=== PATIENT | male | born 1960 | race Caucasian/White ===

== ENCOUNTER 2016-07-05 19:09 | Emergency (ER) | payer OTHER ==
--- NOTE | ~2016-07-05 | ER ---
PATIENT'S NAME: GINO JACKSON [facility] AGE: 56 Y [address] ROOM: [place] [address] LOCATION: [facility] ADMIT DATE: 07/05/2016 ER/Outpatient Report DISCHARGE DATE: 07/05/2016 FAMILY PHYSICIAN: Gino Peters MD ATTENDING PHYSICIAN: Yesica Lamar HISTORY OF PRESENT ILLNESS: This is a 56-year-old male, who was sent in from [facility] after they noted that his heart was irregularly irregular and fast about 140 beats per minute there. The patient says he does not have any palpitations. He has no shortness of breath. He has no nausea or vomiting. No weakness. He is not sure when it started. He does not feel it though. He denies being diaphoretic. No jaw pain. No chest pain. No back pain. No other complaints at this time. He says he did not take his atrial fibrillation medication today. He also cannot tell me any of his medications, but thinks he takes something like Xarelto, calcium channel pb and something for depression. PAST MEDICAL HISTORY: Includes: 1. Hypertension. 2. Depression. 3. Atrial fibrillation on chronic anticoagulation. SOCIAL HISTORY: He does not smoke, drink or use any drugs. MEDICATIONS: Please see med list. ALLERGIES: NONE. REVIEW OF SYSTEMS: Reviewed by me and negative with the exception of those discussed in the HPI. PHYSICAL EXAMINATION: VITAL SIGNS: The patient is 5 feet 9 inches. He weighs 92.7 kilos. Blood pressure is 151/88, heart rate 148, respiratory rate 16, saturating 96% on room air. GCS is 15. GENERAL: The patient is in no acute distress. Pleasant, speaking in full sentences. HEENT: Pupils are equal and reactive to light. Moist mucous membranes. No JVD. HEART: His heart is irregularly irregular and in RVR ranging from 112 to 150s. No chest wall tenderness. PATIENT'S NAME: GINO JACKSON [facility] AGE: 56 Y [address] ROOM: [place] [address] LOCATION: [facility] ADMIT DATE: 07/05/2016 ER/Outpatient Report DISCHARGE DATE: 07/05/2016 FAMILY PHYSICIAN: Gino Peters MD ATTENDING PHYSICIAN: Yesica Lamar LUNGS: His lungs sounds are clear. He has no labored breathing, tachypnea or accessory muscle use. No wheezing, rales or rhonchi. ABDOMEN: Soft, nontender, nondistended. EXTREMITIES: He is moving all extremities. Nontender on palpation. No pedal edema. SKIN: Warm, dry, and intact. NEURO: He is alert and oriented x4. PSYCH: He denies any suicide or homicidal ideation. Just says he follows up at [facility] because he is feeling a little bit depressed. EMERGENCY ROOM COURSE: The patient was initially given 60 mg of p.o. diltiazem as he thinks that is what his dose at home is. This failed to correct his rate, so we did put an IV in him and gave him 10 mg IV push of diltiazem. We did check some blood work as well and the initial EKG was atrial fibrillation with RVR in the 140s. This is before we gave the diltiazem p.o. and IV push. The CBC showed a white count of 8.4, H and H was 15.8/45.3 and platelets 239. No bandemia. Renal panel; sodium was 137, potassium 3.8, chloride 102, CO2 25, anion gap 13.8, glucose 106, BUN is 14, creatinine is 1.2. CPK is 39, CK-MB is 0.5. Troponin was less than 0.04. The patient was reassessed after the IV push of Dilaudid and now his heart rate is around between 85 and 96 beats per minute. The patient says he feels fine. He was never symptomatic here. I did encourage him to take all of his medications and follow up with his primary care doctor. The RVR has resolved. IMPRESSION: Atrial fibrillation with rapid ventricular rate. MD GENO BLACK/hector /[id number] d: 07/06/160 t: 07/31/16 1821, OUTPATIENT REPORT
[2016-07-05 20:27] LABS: BASOPHIL # 0.1 K/uL (0.0-0.2); EOSINOPHIL # 0.1 K/uL (0.0-0.5); EOSINOPHIL % 1.3 %; HEMATOCRIT 45.3 % (37.0-53.0); HEMOGLOBIN 15.8 g/dL (12.0-17.0); IMMATURE GRANULOCYTE % 0.2 %; LYMPHOCYTE # 2.3 K/uL (0.8-4.0); LYMPHOCYTE % 27.8 %; MCH 29.3 pg (27.0-34.0); MCHC 34.9 gm/dL (32.0-36.5); MCV 83.9 fl (83.0-98.0); MONOCYTE # 0.8 K/uL (0.0-1.0); MONOCYTE % 9.4 %; NEUTROPHIL # (ANC) 5.1 K/uL (1.4-9.0); NEUTROPHIL % 60.3 %; NRBC % 0 /100WBC (0-0.00); PLATELET COUNT 239 K/uL (150-450); RDW-CV 12.7 % (11.9-14.6); WBC 8.4 K/uL (4.0-11.0)
[2016-07-05 20:44] LABS: CPK 39 IU/L (35-332)
[2016-07-05 20:57] LABS: ALBUMIN 3.9 gm/dL (3.5-5.0); ANION GAP 13.8 (10.0-19.0); BLOOD UREA NITROGEN 14 mg/dL (6-24); CALCIUM 8.6 mg/dL (8.5-10.5); CHLORIDE 102 mMol/L (96-110); CO2 25 mMol/L (22-32); CREATININE 1.2 mg/dL (0.6-1.3); ESTIMATED GFR (MDRD EQUATION) > 60; PHOSPHORUS 2.4 mg/dL (2.5-4.9); POTASSIUM 3.8 mMol/L (3.7-5.1); SODIUM 137 mMol/L (135-145)
[2016-10-10] MEDS ORDERED: SOTALOL80 MG PO (15:35)
== END 2016-07-05 21:17 | disposition disaster alternative care site (69) ==
LOC: GMED 19:09
PROVIDERS: Emergency Medicine
DX: I48.91 Unspecified atrial fibrillation (principal); I10 Essential (primary) hypertension; F32.9 Major depressive disorder, single episode, unspecified

== ENCOUNTER 2016-08-12 11:51 | Inpatient (IN) | payer OTHER ==
[~2016-08-12] VITALS: Ht 172.7 cm; Wt 98.1 kg
--- NOTE | ~2016-08-12 | HP ---
PATIENT'S NAME: CHICO JACKSON [facility] AGE: 56 Y [address] ROOM: [place] [address] LOCATION: [facility] ADMIT DATE: 08/12/2016 History & Physical DISCHARGE DATE: FAMILY PHYSICIAN: Chico Peters MD ATTENDING PHYSICIAN: ALYSSA LUKE DATE OF SERVICE: CHIEF COMPLAINT: Atrial fibrillation with RVR. HISTORY OF PRESENT ILLNESS: This is a 56-year-old male with a history of depression, paroxysmal atrial fibrillation, and hypertension, who presented from his primary care physician's office after being found to be in atrial fibrillation with rapid heart rate. The patient was apparently new to his PCP's office, and was trying to establish care for the first time today. Of note, the patient tells me that he was first diagnosed with the atrial fibrillation about a year or a year and a half ago, and it appears that he has at some point, even had cardioversion and was put on Cardizem and Coumadin following his diagnosis at that time. The patient, however, tells me that he has not been taking any of his medications for at least the past year, following the loss of his mother. The patient today is comfortable. He denies any chest pain or palpitations, but does mention some shortness of breath with activity. The patient does appear to have a history of depression as well, and overall has a flat affect. The patient otherwise denies any dizziness, lightheadedness, or headaches. He also denies any abdominal pain, nausea, vomiting, diarrhea, or constipation. He denies any urinary symptoms as well. He also denies any fever or chills. PAST MEDICAL HISTORY: 1. Paroxysmal atrial fibrillation. 2. Hypertension. 3. Depression. 4. GERD. 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 He denies any history of alcohol, drug, or tobacco use. FAMILY HISTORY: The patient has a history of coronary artery disease in his brother including having had multiple stents. REVIEW OF SYSTEMS: All systems have been reviewed and are negative except for the ones mentioned PATIENT'S NAME: CHICO JACKSON [facility] AGE: 56 Y [address] ROOM: [address] [address] LOCATION: [facility]U ADMIT DATE: 08/12/2016 History & Physical DISCHARGE DATE: FAMILY PHYSICIAN: Chico Peters MD ATTENDING PHYSICIAN: ALYSSA LUKE in the [facility]. PHYSICAL EXAMINATION: VITAL SIGNS: Afebrile, blood pressure was 123/65, heart rate irregular between 100 and 120, and saturating 98% on room air. GENERAL: He is awake, alert, and oriented x3, in no acute distress. CHEST: Clear to auscultation bilaterally. HEART: S1 and S2, irregular. HEENT: Dry mucosal membranes, but no scleral icterus was noted. SKIN: Without rash or lesions. MUSCULOSKELETAL: Without muscular tenderness or joint problems noted. ABDOMEN: Soft, nontender, and nondistended. Positive bowel sounds. NEUROLOGICAL: Grossly nonfocal. LABORATORY DATA: Initial labs are pending. ASSESSMENT AND PLAN: 1. Atrial fibrillation with rapid ventricular fibrillation. The patient had the diagnosis of atrial fibrillation about a year and a half ago, but has been lost for followup and had not taken any of his medications over the last year at least, it appears. At this point, we will start the patient on immediate release Cardizem 30 mg q.6 hours in hopes of controlling his rate better. His heart rate right now is in atrial fibrillation between 100 and 120, and he is asymptomatic with it. Of note, the patient was supposed to be on Coumadin and Cardizem, which he has not taken for the past several months. I will also have Cardiology evaluate the patient. 2. Hypertension. Blood pressure is okay right now. The patient was supposed to be on blood pressure medications at some point as well, which he has not been taking. 3. Depression. The patient seems to have worsening depression after the loss of his mother as well, and this is also contributing to his lack of followup. I will start him on Zoloft 50 mg p.o. daily for right now and have him follow up with his primary care physician going forward. 4. Gastroesophageal reflux disease. We will put the patient on GI prophylaxis with PPI. 5. Deep venous thrombosis prophylaxis. The patient will be on heparin drip per atrial fibrillation protocol. ALYSSA LUKE MD /modl PATIENT'S NAME: CHICO JACKSON [facility] AGE: 56 Y [address] ROOM: [place] [address] [facility] ADMIT DATE: 08/12/2016 History & Physical DISCHARGE DATE: FAMILY PHYSICIAN: Chico Peters MD ATTENDING PHYSICIAN: ALYSSA LUKE /[id number] D: [id number] T: [id number] HISTORY & PHYSICAL
--- NOTE | ~2016-08-12 | ECHO ---
Transthoracic Echocardiography Report (TTE) Demographics Patient Name GINO JACKSON Date of Study 08/12/2016 Patient Number [id number] Visit Number [id number] Date of 1960 Room Number G6320 Accession Number [id number] Gender Male Age 56 year(s) Referring [facility] Career Information Specialist [place] Physician Gabi [facility] Physician Interpreting Anat Garza MD Freight Elevator Operator Physician Supervising Ordering Physician MD/MLP Nurse Stress Inspector Rubber Stamp Die Conclusions Contractility Score Summary Global Left Ventricular Hypokinesis was noted. Summary Technically difficult exam. The estimated left ventricular ejection fraction is 40%. Moderate concentric left ventricular hypertrophy. Diastolic function indeterminate due to patient's arrhythmia. The left atrium is mildly dilated. The left atrium is mildly dilated by LA volume index measurement. Mild mitral regurgitation by color Doppler. There is trivial aortic regurgitation by color Doppler. There is severe aortic stenosis by the Continuity Equation. The peak velocity is 3.85 m/s, the mean gradient is 35 mmHg, and the valve area based on the continuity equation is <1.0cm2, stroke volume index is 17.11 ml/m2. Mild tricuspid regurgitation by color Doppler. Procedure Type of Study TTE procedure:2D Echocardiogram. Procedure Date Date: 08/12/2016 Start: 02:10 PM Indications:Atrial Fibrillation w/ RVR. Appropriate Use Criteria: 9 HR: 110 bpm BP: 123/86 mmHg M-Mode/2D Measurements LV Diastolic Dimension: 5.34 cm LV Systolic Dimension: 4.07 cm LV Septum Diastolic: 1.31 cm LV PW Diastolic: 1.33 cm AO Root Dimension: 2.9 cm Cardiac Output: 3.97 l/min AV Cusp Separation: 1.5 cm RV Diastolic Dimension: 3.74 cm LA volume: 126 ml LVOT: 2 cm RV Base: 3.38 cm LVOT VTI: 11.5 cm RV Mid: 3.08 cm LV Stroke volume: 36.11 ml Doppler Measurements AV Peak Velocity: 3.85 m/s MV Peak E-Wave: 0.76 m/s AV Peak Gradient: 59.29 mmHg AV Mean Gradient: 35 mmHg MV P1/2t: 52 msec LVOT Peak Velocity: 0.59 m/s TR Velocity:1.9 m/s PV Peak Velocity: 0.97 m/s TR Gradient:14.44 mmHg PV Peak Gradient: 3.73 mmHg Estimated RAP:10 mmHg Estimated PASP: 24.44 mmHg Estimated RVSP: 24 mmHg A' Septal Velocity: 0.12 m/s E' Septal Velocity: 0.06 m/s Findings Left Ventricle Moderate concentric left ventricular hypertrophy. Diastolic function indeterminate due to patient's arrhythmia. Right Ventricle Mildly dilated right ventricle. Left Atrium The left atrium is mildly dilated. Right Atrium Normal right atrial size. IVC measures 2.5 cm with inspiratory collapse. Mitral Valve Mild mitral regurgitation by color Doppler. Aortic Valve There is trivial aortic regurgitation by color Doppler. There is moderate severe aortic stenosis by the Continuity Equation. The peak velocity is 3.85 m/s, the mean gradient is 35 mmHg, and the valve area based on the continuity equation is <1.0cm2, stroke volume index is 17.11 ml/m2. Tricuspid Valve Mild tricuspid regurgitation by color Doppler. Pulmonic Valve Normal pulmonic valve structure and function. Pericardial Effusion No evidence of pericardial effusion. Pleural Effusion No evidence of pleural effusion. Contractility Score LV regional wall motion:(0-Non visualized 1-Normal 2-Hypokinesis 3-Akinesis 4-Dyskinesis 5-Aneurysm) Signature dtt: Greg Coppola (cardio) dtd: 08/12/16 1410 Physician Self Edit
--- NOTE | ~2016-08-12 | DS ---
PATIENT'S NAME: GINO JACKSON [facility] AGE: 56 Y [address] ROOM: [place] [address] LOCATION: GPCU ADMIT DATE: 08/12/2016 Discharge Summary DISCHARGE DATE: 08/14/2016 FAMILY PHYSICIAN: Gino Peters MD ATTENDING PHYSICIAN: Gabi Mistry ATTENDING PHYSICIAN: Lennox Bansal M.D. PRIMARY CARE PHYSICIAN: Dr. Choudhary. FINAL DIAGNOSES: 1. Persistent atrial fibrillation, rate controlled. 2. Long-term anticoagulation. 3. Depression. 4. Bicuspid aortic valve. 5. Dyslipidemia. CONSULTATION: Cardiology, Dr. Greg Coppola. PROCEDURES: None. REASON FOR ADMISSION: This is a 56-year-old male who presented with atrial fibrillation with RVR. The patient has a history of depression and paroxysmal atrial fibrillation. He was noncompliant with his medications for atrial fibrillation and also long-term anticoagulation. He presented with AFib with RVR and was admitted to the hospital. Please see Dr. Mistry's admission H and P for further details. DIAGNOSTIC STUDIES: A transthoracic echocardiogram was done and showed global left ventricular hypokinesis, ejection fraction of 40%, left atrium mildly dilated, mild mitral regurgitation noted, trivial aortic regurgitation noted, severe aortic stenosis noted, mild tricuspid regurgitation was noted as well. Serial CBCs were done and showed essentially normal white count, hemoglobin, hematocrit, and platelet levels. Serial BMP showed normal electrolytes and kidney function tests. Lipid panel was done and showed a total cholesterol of 201, triglycerides 135, HDL 54, and LDL 120. The patient was placed on heparin drip during this admission that was monitored with PTT levels. PT, INR was normal. TSH 1.1. Chest x-ray was done on admission and showed cardiac silhouette within normal limits and no acute process was noted. The patient had an EKG done on admission that showed atrial fibrillation with rapid ventricular rate and rate of 105 milliseconds, no acute ST changes were noted. HOSPITAL COURSE: This is a 56-year-old male who was noncompliant with his medications for paroxysmal atrial fibrillation. He had also stopped his long- PATIENT'S NAME: GINO JACKSON [facility] AGE: 56 Y [address] ROOM: [place] [address] LOCATION: GPCU ADMIT DATE: 08/12/2016 Discharge Summary DISCHARGE DATE: 08/14/2016 FAMILY PHYSICIAN: Gino Peters MD ATTENDING PHYSICIAN: Gabi Mistry anticoagulation medication. The patient presented with atrial fibrillation with rapid ventricular rate. Cardiology was consulted. The patient was placed on a Cardizem drip initially that was later switched off once the patient was rate controlled. The patient also underwent an echo and findings are as above. Cardiology followed up with the patient. It was recommended that the patient be placed on long-term anticoagulation. The patient was initially on a heparin drip, it was later transitioned to Xarelto. At the time of discharge, the patient was placed on beta-blockers for rate control as well. The patient has a history of depression. He denied any suicidal or homicidal ideation. He was placed on Zoloft for his depression during this admission. The patient continued to do well. His atrial fibrillation was rate controlled. He was ambulating in the hallway. He was not short of breath and did not have any chest pain. I discussed the case with Dr. Greg Coppola on the day of discharge. No further cardiac workup was necessary at this point of time per Dr. Coppola. The patient will follow up with Dr. Greg Coppola as an outpatient. The patient continued to well, and he was discharged and asked to follow up with his primary care physician and Dr. Coppola. DISCHARGE INSTRUCTIONS: The patient discharged on a cardiac diet with activity as tolerated. Follow up with Dr. Greg Coppola in 2 weeks' time. Follow up with PCP, Dr. Gino Peters or Dr. Choudhary in [place] in 3 to 4 days' time. PCP to check a CBC and a CMP. Follow up with Dr. Greg Coppola in 2 weeks' time, Cardiology, to decide on long-term anticoagulation and follow-up. Care management to help the patient set up with home medications. The patient currently lives in an independent living facility in [place]. DISCHARGE MEDICATIONS: 1. Lopressor 37.5 mg p.o. b.i.d., new medication. 2. Aspirin 81 mg p.o. daily, dose decreased. 3. Xarelto 20 mg p.o. daily, new medication. 4. Zoloft 50 mg p.o. q.a.m., new medication. 5. Zocor 40 mg p.o. at bedtime, new medication. This patient was managed by hospitalist and Cardiology teams during this admission. LENNOX BANSAL MD MT/hector PATIENT'S NAME: GINO JACKSON [facility] AGE: 56 Y [address] ROOM: [place] [address] [facility] ADMIT DATE: 08/12/2016 Discharge Summary DISCHARGE DATE: 08/14/2016 FAMILY PHYSICIAN: Gino Peters MD ATTENDING PHYSICIAN: Gabi Mistry /[id number] CC: MD Hayder Parry MD d: 08/15/16 0940 t: 08/18/16 1542, DISCHARGE SUMMARY
--- NOTE | ~2016-08-12 | CON ---
PATIENT'S NAME: GINO JACKSON [facility] AGE: 56 Y [address] ROOM: [address] [place], [place] [address] LOCATION: GPCU ADMIT DATE: 08/12/2016 Consultation DISCHARGE DATE: 08/14/2016 FAMILY PHYSICIAN: Gino Peters MD ATTENDING PHYSICIAN: Gabi Mistry DATE OF CONSULTATION: 08/12/2016 REFERRING PHYSICIAN: Hayder Choudhary MD REFERRING PHYSICIAN: Gabi Mistry MD. REASON FOR CONSULT: Atrial fibrillation with rapid ventricular response. HISTORY OF PRESENT ILLNESS: This is a 56-year-old gentleman who was admitted to the hospital after being seen by primary care physician who is trying to establish care with for the first time. He was found to be in an atrial fibrillation with rapid ventricular response and was complaining of shortness of breath and fatigue. He tells me that he was diagnosed with atrial fibrillation about a year and a half ago when he was in [place]. At that time, he had undergone an echocardiogram and also DC cardioversion. He was placed on anticoagulation therapy and Cardizem and states that he had not been taking his medications very well. Then, he had a repeat admission in the emergency room on July 31, 2016, after he was in [facility]. He was found to be in rapid ventricular response at that time and noted that he was having palpitations, but no shortness of breath. He was given 60 mg of diltiazem and then underwent IV push diltiazem with better rate control. He was subsequently monitored for a while in the emergency room, started on anticoagulation, and sent back to [facility]. He was instructed at that time to follow up with the primary care physician, which he did not do. He has since moved from [place] to [facility] here in [place] and admits that once again he has not been taking his medications. He does feel palpitations, described as a fluttering in his chest. He was a little bit short of breath, especially when his heart rate is fast. He also reports that he does not always notice when he is out of rhythm. He has not had any problems with orthopnea, PND, or peripheral edema. He denies presyncope or syncopal episodes. PAST MEDICAL HISTORY: 1. Paroxysmal atrial fibrillation. 2. Long-term anticoagulation. 3. Hypertension. 4. Profound depression. 5. Gastroesophageal reflux disease. PATIENT'S NAME: GINO JACKSON [facility] AGE: 56 Y [address] ROOM: [address] [place], [place] [address] LOCATION: GPCU ADMIT DATE: 08/12/2016 Consultation DISCHARGE DATE: 08/14/2016 FAMILY PHYSICIAN: Gino Peters MD ATTENDING PHYSICIAN: Gabi Mistry 6. Bicuspid aortic valve with aortic stenosis, this was noted per an echocardiogram, 01/09/2016. PAST SURGICAL HISTORY: He has had a TIA and ureteral reimplant as a child; DC cardioversion, 01/09/2016; arterial Dopplers of the lower extremities, 01/08/2016, showing triphasic waveform. ALLERGIES: NONE TO MEDICATION. HOME MEDICATIONS: He was to be on, 1. Diltiazem 60 mg every day. 2. Xarelto 20 mg every day which he has not taken. 3. Also on Zoloft. SOCIAL HISTORY: He is a lifelong nonsmoker. He has never been . 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 FAMILY HISTORY: A brother has coronary artery disease, having multiple stents. REVIEW OF SYSTEMS: HEENT: Head: No history of headache. Eyes: No blurred vision or double vision. Ears: No problems with hearing. Nose: No epistaxis or rhinorrhea. Mouth: No gingival bleeding. Throat: Denies sore throat, hoarseness, or difficulty swallowing. PULMONARY: He has some intermittent shortness of breath, but no orthopnea, PND, or peripheral edema. No cough or hemoptysis. GASTROINTESTINAL: Negative for nausea, vomiting, or diarrhea. No melena or hematochezia. No history of elevated liver enzymes or yellow jaundice. : He has a remote history of urinary retention, but is post surgery and denies any incontinence or difficulty starting a stream. MUSCULOSKELETAL: No complaints of arthralgias or myalgias. NEUROLOGIC: Denies numbness or tingling or TIA symptomatology. PSYCHIATRIC: He does have a history of severe depression. Currently, his mood and affect are pretty good. PHYSICAL EXAMINATION: HEART: Heart rates are in the 140s with atrial fibrillation. His blood pressures are ranging in the 103/70 to 113/70. He is afebrile. He is 5 feet 8 inches and weighs 98.1 kg. GENERAL: He is alert and answers questions appropriately. He has symmetrical PATIENT'S NAME: GINO JACKSON [facility] AGE: 56 Y [address] ROOM: [address] [place], [place] [address] LOCATION: GPCU ADMIT DATE: 08/12/2016 Consultation DISCHARGE DATE: 08/14/2016 FAMILY PHYSICIAN: Gino Peters MD ATTENDING PHYSICIAN: Gabi Mistry facial expression. HEENT: Eyes: Pupils are equal, round, and react briskly to light. EOMs are intact. Nose is non-deviated. No rhinorrhea is noted. Oral mucosa is pink and moist. No lesions. Teeth are in good repair. NECK: Soft and supple. No lymphadenopathy or thyromegaly. JVD is flat. CV: Irregular with a normal S1 and a delayed S2 with an aortic stenotic murmur grade 2/6. LUNGS: Lung sounds were clear anteriorly and posteriorly. ABDOMEN: Soft. Bowel sounds are present in all 4 quadrants. No organomegaly is noted. EXTREMITIES: Show no peripheral edema. No clubbing and no cyanosis. Distal pulses are 2+/4. PSYCHIATRIC: He has poor eye contact, but is cheerful and cooperative. SKIN: There is no exanthemas noted around the eyes or heels. No lesions noted. NEUROLOGIC: Gait was not assessed. He has strong hand grasp bilaterally and is able to walk without any difficulty per nursing staff. LABORATORY DATA: TSH 1.1. Hemoglobin 14, hematocrit 41.8, and white count 8.6. BUN is 19, creatinine 0.8, sodium 142, and potassium is 4.1. ASSESSMENT: 1. Persistent atrial fibrillation. He is currently on Cardizem infusion as well as heparin. We are going to get an echocardiogram, start him on Xarelto and metoprolol therapy. We will plan on 3 weeks of long-term anticoagulation and after that, we will discuss cardioversion therapy. 2. Bicuspid aortic valve. This is stable. We will see what the echocardiogram shows. The assessment and plan, history of present illness, and physical examination are per Dr. Greg Coppola. MEGAN CHAPIN APRN FOR MD DEMETRIO LEWIS/modl /[id number] d: 08/14/16 2241 t: 08/23/16 0922, CONSULTATION REPORT
--- NOTE | 2016-08-12 12:40 | NUR ---
PT is 56 y/o male admit for afib w rvr for hospitalist. Cardiology to consult. Pt alert and oriented x3. No allergies. Resides at home by himself. 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 He states he neglected to start the medication because he was busy taking care of his mom. He was later cardioverted which was successful. Today he went to the DR because he could feel his heart fluttering.
[2016-08-12] MEDS ORDERED: ECOTRIN325 MG PO (12:59)
[2016-08-12 14:20] LABS: BASOPHIL # 0.1 K/uL (0.0-0.2); BASOPHIL % 0.9 %; EOSINOPHIL # 0.4 K/uL (0.0-0.5); EOSINOPHIL % 4.1 %; HEMATOCRIT 41.8 % (37.0-53.0); IMMATURE GRANULOCYTE # 0.1 K/uL (0.0-0.3); IMMATURE GRANULOCYTE % 0.6 %; LYMPHOCYTE # 1.9 K/uL (0.8-4.0); MCH 29.6 pg (27.0-34.0); MCHC 33.5 gm/dL (32.0-36.5); MONOCYTE # 0.7 K/uL (0.0-1.0); MONOCYTE % 8.4 %; MPV 10.1 fl (9.4-12.4); NEUTROPHIL # (ANC) 5.5 K/uL (1.4-9.0); NRBC % 0 /100WBC (0-0.00); PLATELET COUNT 210 K/uL (150-450); RBC 4.73 M/uL (4.00-6.00); RDW-CV 13.6 % (11.9-14.6); WBC 8.6 K/uL (4.0-11.0)
[2016-08-12 14:26] LABS: MCV 88.4 fl (83.0-98.0)
[2016-08-12 14:34] LABS: PROTIME 10.5 SECONDS (9.8-11.4)
[2016-08-12 14:48] LABS: ALBUMIN 3.3 gm/dL (3.5-5.0); ANION GAP 12.1 (10.0-19.0); BLOOD UREA NITROGEN 19 mg/dL (6-24); CALCIUM 8.5 mg/dL (8.5-10.5); CHLORIDE 109 mMol/L (96-110); CO2 25 mMol/L (22-32); CREATININE 0.8 mg/dL (0.6-1.3); ESTIMATED GFR (MDRD EQUATION) > 60; MAGNESIUM 2.2 mg/dL (1.8-2.6); PHOSPHORUS 4.1 mg/dL (2.5-4.9); POTASSIUM 4.1 mMol/L (3.7-5.1); SODIUM 142 mMol/L (135-145)
--- NOTE | 2016-08-12 17:50 | NUR ---
Significant Event: A/Ox3. [id number]. P-80-130s. Afebrile. Room air. R) wrist IV infusing Heparin 100units/hr and cardizem 5mg/hr. Patient remains in afib. Denies SOB and CP. Up to bathroom with SBA.
[2016-08-13 03:43] LABS: BASOPHIL # 0.1 K/uL (0.0-0.2); EOSINOPHIL # 0.6 K/uL (0.0-0.5); EOSINOPHIL % 6.5 %; HEMATOCRIT 41.7 % (37.0-53.0); HEMOGLOBIN 13.9 g/dL (12.0-17.0); IMMATURE GRANULOCYTE # 0.1 K/uL (0.0-0.3); LYMPHOCYTE # 3.2 K/uL (0.8-4.0); LYMPHOCYTE % 35.5 %; MCH 29.7 pg (27.0-34.0); MCHC 33.3 gm/dL (32.0-36.5); MCV 89.1 fl (83.0-98.0); MONOCYTE # 0.7 K/uL (0.0-1.0); MONOCYTE % 7.5 %; MPV 10.4 fl (9.4-12.4); NEUTROPHIL # (ANC) 4.4 K/uL (1.4-9.0); NEUTROPHIL % 48.5 %; NRBC % 0.2 /100WBC (0-0.00); PLATELET COUNT 204 K/uL (150-450); RBC 4.68 M/uL (4.00-6.00); RDW-CV 13.7 % (11.9-14.6)
[2016-08-13 04:01] LABS: ALBUMIN 3.2 gm/dL (3.5-5.0); BLOOD UREA NITROGEN 17 mg/dL (6-24); CALCIUM 8.5 mg/dL (8.5-10.5); CHLORIDE 109 mMol/L (96-110); CO2 25 mMol/L (22-32); CREATININE 0.9 mg/dL (0.6-1.3); ESTIMATED GFR (MDRD EQUATION) > 60; PHOSPHORUS 3.8 mg/dL (2.5-4.9); SODIUM 141 mMol/L (135-145)
[2016-08-13 04:04] LABS: ANION GAP 10.9 (10.0-19.0); MAGNESIUM 2.3 mg/dL (1.8-2.6); POTASSIUM 3.9 mMol/L (3.7-5.1)
--- NOTE | 2016-08-13 05:39 | NUR ---
Significant event: A/O x 3. Up to bathroom only. Cardizem off at shift change last night ( 1834) with rates in the 70's-80's all night. Heparin drip at 1400 units/hr with the next ptthp due at 1010. VSS on RA no C/O pain.
--- NOTE | 2016-08-13 12:11 | NUR ---
Introduced self and role of care management to pt. He states he is up at [facility] because he was unable to live by himself at home on the [place] in [place] and his brother is here just not in the room. He states he is up on his own and they do all 3 meals for him and I explained the md is wanting them to do his meds and he states that is fine just wondering about where to go to fill them. I explained I will inquire about this and have them give his brother a call. I did call Jaky on the home health side and she states they are planning on doing the meds and to fax dc orders to [phone] when ready and I did ask about where to fill them and she will have the director give his brother a call because they would like them to use [facility]? Will continue to follow.
--- NOTE | 2016-08-13 17:11 | NUR ---
Significant Event: A/Ox3. [id number]. P-80-100s. Afib. Afebrile. Room air. R) wrist infusing heparin at 1500units/hr, next ptthp at 2230. We are to turn heparin off tomorrow morning at 8am. Patient started Xeralto today. SBA. Possible discharge home tomorrow.
--- NOTE | 2016-08-14 05:12 | NUR ---
Significant Event: PATIENT IS A/O X3. VSS. HR 80-100'S IN AFIB. SBP 100-120'S. AFEBRILE. 02 SATS IN MID 90'S ON RA. NO C/O PAIN. LUNGS CLEAR THROUGHOUT. UP WITH SBA TO RESTROOM. VOIDS PER URINAL. BOWELS ACTIVE. IV TO RIGHT WRIST SL. HEPARIN OFF AT 0500. Follow up: CONTINUE TO MONITOR PER PLAN OF CARE. HOME TODAY.
[2016-08-14 05:18] LABS: BASOPHIL # 0.1 K/uL (0.0-0.2); BASOPHIL % 1.2 %; EOSINOPHIL # 0.5 K/uL (0.0-0.5); EOSINOPHIL % 5.5 %; HEMATOCRIT 43.9 % (37.0-53.0); HEMOGLOBIN 14.6 g/dL (12.0-17.0); IMMATURE GRANULOCYTE # 0.1 K/uL (0.0-0.3); IMMATURE GRANULOCYTE % 0.7 %; LYMPHOCYTE # 2.6 K/uL (0.8-4.0); LYMPHOCYTE % 31.2 %; MCH 29.2 pg (27.0-34.0); MCHC 33.3 gm/dL (32.0-36.5); MCV 87.8 fl (83.0-98.0); MONOCYTE # 0.6 K/uL (0.0-1.0); MONOCYTE % 7.3 %; NEUTROPHIL # (ANC) 4.5 K/uL (1.4-9.0); NEUTROPHIL % 54.1 %; NRBC % 0 /100WBC (0-0.00); PLATELET COUNT 214 K/uL (150-450); RDW-CV 13.4 % (11.9-14.6); WBC 8.3 K/uL (4.0-11.0)
[2016-08-14 05:34] LABS: ALBUMIN 3.4 gm/dL (3.5-5.0); ANION GAP 13.7 (10.0-19.0); BLOOD UREA NITROGEN 13 mg/dL (6-24); CALCIUM 8.8 mg/dL (8.5-10.5); CHLORIDE 106 mMol/L (96-110); CO2 24 mMol/L (22-32); CREATININE 0.8 mg/dL (0.6-1.3); ESTIMATED GFR (MDRD EQUATION) > 60; MAGNESIUM 2.2 mg/dL (1.8-2.6); PHOSPHORUS 3.7 mg/dL (2.5-4.9); POTASSIUM 3.7 mMol/L (3.7-5.1); SODIUM 140 mMol/L (135-145)
--- NOTE | 2016-08-14 11:59 | NUR ---
Pt ready to be dismissed home. He stated the gal was up from [facility] and all will be set up for his meds when he returns. I will fax dc orders and meds once done.
[2016-08-14] MEDS ORDERED: LOPRESSOR25 MG PO ×2 (12:09→12:12)
[2016-08-14] MEDS ORDERED: ASPIRIN (CHILDR81 MG PO (12:13)
[2016-08-14] MEDS ORDERED: XARELTO20 MG PO (12:17)
[2016-08-14] MEDS ORDERED: ZOLOFT50 MG PO (12:18)
[2016-08-14] MEDS ORDERED: ZOCOR40 MG PO (12:49)
--- NOTE | 2016-08-14 14:20 | NUR ---
PATIENT GIVEN WRITTEN DISMISSAL INSTRUCTIONS INCLUDING NEW HOME MEDICATION LIST WITH INFORMATION ON NEW MEDS, PRESCRIPTIONS, FOLLOW-UP APPOINTMENT TIMES WITH CARDIOLOGY AND PCP, DIET AND ACTIVITY RESTRICTIONS. PATIENT STATES UNDERSTANDING OF INFORMATION DISCUSSED WITH RN. PIV REMOVED FROM R) WRIST/HAND WITH GAUZE AND COBAN APPLIED. TELEMETRY DC'D AND PATIENT DRESSED. AMBULATE WITH RN TO FRONT OF [facility]TR[facility] WITH BELONGINGS AT 1300, DISMISSING VIA PRIVATE CAR.
[2016-10-10] MEDS ORDERED: SOTALOL80 MG PO (15:35)
== END 2016-08-14 13:05 | disposition disaster alternative care site (69) | DRG 309 ==
LOC: GPCU 11:51
PROVIDERS: ADMIT Internal Medicine
DX: I48.1 Persistent atrial fibrillation (principal); Q23.1 Congenital insufficiency of aortic valve; I10 Essential (primary) hypertension; F32.9 Major depressive disorder, single episode, unspecified; K21.9 Gastro-esophageal reflux disease without esophagitis; Z79.01 Long term (current) use of anticoagulants; E78.5 Hyperlipidemia, unspecified; Z91.19 Patient's noncompliance with other medical treatment and regimen; Z91.14 Patient's other noncompliance with medication regimen; T45.516A Underdosing of anticoagulants, initial encounter; T46.1X6A Underdosing of calcium-channel blockers, initial encounter
CPT/HCPCS: J1644; J7040

== ENCOUNTER → 2016-10-14 | Day surgery (SDC) | payer OTHER ==
[~2016-10-14] VITALS: Ht 172.7 cm; Wt 107.4 kg
[~2016-10-14] MED LIST: ASPIRIN (CHILDR81 MG PO; ECOTRIN325 MG PO; LOPRESSOR25 MG PO; SOTALOL80 MG PO; XARELTO20 MG PO; ZOCOR40 MG PO; ZOLOFT50 MG PO
--- NOTE | ~2016-10-14 | OR ---
PATIENT'S NAME: GINO CASE [facility] AGE: 56 Y [address] ROOM: [place] [address] LOCATION: [facility] ADMIT DATE: 10/14/2016 OR/Procedure Report DISCHARGE DATE: FAMILY PHYSICIAN: REINALDO MATIAS MD ATTENDING PHYSICIAN: Yan García SURGEON: Yan García MD SHEET HANGER: DATE OF PROCEDURE: 10/14/2016 PROCEDURE: DC cardioversion. INDICATION: Atrial fibrillation refractory to antiarrhythmic drug therapy. DESCRIPTION FOR PROCEDURE: Mr. Case was brought to the preoperative suite in the fasting state, prepped and draped in normal manner. Patches were placed in the AP dimension. Subsequently 80 mg propofol was administered through the nurse paper wrapping machine operator. Once adequate levels of sedation were obtained, 200 joules synchronized therapy was delivered with prompt yazidism of normal sinus rhythm. CONCLUSION: 1. Successful yazidism of normal sinus rhythm using DC cardioversion. 2. 12-lead EKGs is pending at the time of this dictation. 3. The patient will continue antiarrhythmic drug therapy as well as long- term anticoagulation. I would like to thank Dr. Matias, for the opportunity to participate in the care Mr. Case. YAN GARCÍA MD DJM/modl /[id number] d: 10/21/16 1035 t: 10/25/16 0913, OPERATIVE SUMMARY
== END | disposition disaster alternative care site (69) ==
LOC: GPOC 10-10 16:00
PROC: 5A2204Z Restoration of Cardiac Rhythm, Single (ICD-10-PCS; principal; 2016-10-14)
DX: I48.1 Persistent atrial fibrillation (principal); F32.9 Major depressive disorder, single episode, unspecified; K21.9 Gastro-esophageal reflux disease without esophagitis; E78.5 Hyperlipidemia, unspecified; I35.0 Nonrheumatic aortic (valve) stenosis; E66.9 Obesity, unspecified; Z68.34 Body mass index [BMI] 34.0-34.9, adult; Z98.890 Other specified postprocedural states; Z79.01 Long term (current) use of anticoagulants
CPT/HCPCS: J2001; J7030